=== PATIENT | male | born 1950 | race Caucasian/White ===

== ENCOUNTER 2021-12-19 15:51 | Outpatient (CLI) | payer MEDICARE, SELFPAY ==
[2021-12-19 16:26] LABS: INR 3.84 (0.8-1.2)
== END 2021-12-19 15:52 | disposition home or self-care (01) ==
LOC: LAB 15:59
PROVIDERS: Visit Provider Family Medicine
DX: Z01.89 Encounter for other specified special examinations (principal)
CPT/HCPCS: 85610

== ENCOUNTER 2021-12-26 14:35 | Outpatient (CLI) | payer MEDICARE, SELFPAY | END 2021-12-26 14:36 | disposition home or self-care (01) | PROVIDERS: Visit Provider Family Medicine | DX: Z01.89 Encounter for other specified special examinations (principal) | CPT/HCPCS: 85610 ==